=== PATIENT | female | born 1985 | race American Indian/Alaskan Native ===

== ENCOUNTER 2017-07-23 20:40 | Emergency (ER) | payer SELFPAY ==
[2017-07-23 21:13] LABS: Basophils % (Auto) 0.4 % (0.0-1.8); Eosinophils # (Auto) 0.1 K/mm3 (0.0-0.4); Eosinophils % (Auto) 1.9 % (0.0-4.3); Hematocrit 44.8 % (30.3-42.9); Hemoglobin 14.8 gm/dl (10.1-14.3); Lymphocytes # (Auto) 1.9 K/mm3 (1.2-5.4); Lymphocytes % (Auto) 25.7 % (13.4-35.0); Mean Corpuscular HGB Conc 33 % (30-34); Mean Corpuscular Hemoglobin 32 pg (28-32); Mean Corpuscular Volume 96 fl (79-97); Monocytes # (Auto) 0.5 K/mm3 (0.0-0.8); Monocytes % (Auto) 6.3 % (0.0-7.3); Platelet Count 220 K/mm3 (140-440); Red Blood Count 4.69 M/mm3 (3.65-5.03); Red Cell Distribution Width 13.3 % (13.2-15.2)
[2017-07-23 21:34] LABS: Alanine Aminotransferase 10 units/L (7-56); Albumin 4.6 g/dL (3.9-5); BUN/Creatinine Ratio 22; Blood Urea Nitrogen 11 mg/dL (7-17); Calcium 9.1 mg/dL (8.4-10.2); Hemolysis Index 11; Lipase 24 units/L (13-60)
[2017-07-23 23:50] LABS: Bilirubin,Urine NEG (Negative); Blood,Urine NEG (Negative); Color,Urine Yellow (Yellow); Mucus,Urine 1+ /HPF; Protein,Urine <15 mg/dL mg/dL (Negative)
[2017-07-24] MEDS ORDERED: ALUM-MAG HYDROX-SIMETH 200-200-20MG/5ML PO ONE (01:54)
--- NOTE | 2017-07-24 01:58 | Emergency Department Report ---
ED Abdominal Pain HPI - General Chief Complaint: Abdominal Pain Stated Complaint: ABD PAIN LWR RADIATING TO BACK/CHEST Time Seen by Provider: 07/24/17 01:30 Source: patient Mode of arrival: Ambulatory Limitations: No Limitations - History of Present Illness Initial Comments: Patient is 32 years old female history of hypothyroidism, patient presented to the ER complaining of epigastric abdominal pain that does not radiate. Described her pain as burning and fullness sometimes. Patient denied any nausea or vomiting or diarrhea. Patient stated that she is out of her thyroid medicine for the last 3 weeks. No fever cough or congestion. MD Complaint: abdominal pain -: week(s) Location: epigastric Radiation: none Migration to: no migration Severity: moderate Severity scale (0 -10): 5 Quality: fullness, burning Consistency: intermittent Worsens With: nothing Associated Symptoms: denies other symptoms - Related Data Allergies Allergy/AdvReac Type Severity Reaction Status Date / Time tramadol Allergy Itching Verified 07/23/17 20:47 ED Review of Systems ROS: Stated complaint: ABD PAIN LWR RADIATING TO BACK/CHEST Other details as noted in HPI Comment: All other systems reviewed and negative Constitutional: denies: chills Cardiovascular: denies: chest pain, palpitations Gastrointestinal: abdominal pain. denies: nausea, vomiting, diarrhea Neurological: denies: headache, weakness, numbness ED Past Medical Hx - Past Medical History Previous Medical History?: Yes Additional medical history: FLUID IN FALLOPIAN/ POLYPS THYROID - Surgical History Hx Cholecystectomy: Yes Additional Surgical History: POLYP REMOVAL / TUBAL LIGATION - Social History Smoking Status: Current Some Day Smoker Substance Use Type: None ED Physical Exam - General Limitations: No Limitations General appearance: alert, in no apparent distress - Head Head exam: Present: atraumatic, normocephalic - Eye Eye exam: Present: normal appearance, PERRL - ENT ENT exam: Present: normal exam, normal orophraynx, mucous membranes moist - Neck Neck exam: Present: normal inspection, full ROM. Absent: tenderness, meningismus - Respiratory Respiratory exam: Present: normal lung sounds bilaterally. Absent: respiratory distress, wheezes, rales, rhonchi, stridor, chest wall tenderness, accessory muscle use, decreased breath sounds, prolonged expiratory - Cardiovascular Cardiovascular Exam: Present: regular rate, normal rhythm, normal heart sounds - GI/Abdominal GI/Abdominal exam: Present: soft, normal bowel sounds. Absent: distended, tenderness, guarding, rebound, rigid, organomegaly, mass, bruit, pulsatile mass , hernia - Extremities Exam Extremities exam: Present: normal inspection, full ROM, normal capillary refill - Back Exam Back exam: Present: normal inspection, full ROM. Absent: CVA tenderness (L) - Neurological Exam Neurological exam: Present: alert, oriented X3, CN II-XII intact, normal gait - Skin Skin exam: Present: warm, intact, normal color ED Course Vital Signs 07/23/17 07/24/17 20:47 02:20 Temperature 98.8 F 98.9 F Pulse Rate 83 86 Respiratory 18 16 Rate Blood Pressure 131/90 Blood Pressure 139/102 [Left] O2 Sat by Pulse 100 98 Oximetry ED Medical Decision Making - Lab Data Result diagrams: 07/23/17 20:56 07/23/17 20:56 - Radiology Data Radiology results: report reviewed Referring Physician: KAYLA HERNANDEZ Patient Name: SELWYN BURNHAM Date of : 1985 Sex: Female Report Date: 2017-07-24 Report Status: Finalized Findings [facility] [address] [place] [address] XRay Report Signed Patient: SELWYN BURNHAM MR#: [id number] : 1985 Acct:[id number] Age/Sex: 32 / F ADM Date: 07/23/17 Loc: ED Attending Dr: Ordering Physician: KAYLA HERNANDEZ Date of Service: 07/24/17 Procedure(s): XR abdomen 1V ap Accession Number(s): [id number] cc: KAYLA HERNANDEZ Fluoro Time In Minutes: FINAL REPORT EXAM: XR ABDOMEN 1V AP HISTORY: Seen. The bones and soft tissues otherwise well maintained. Pelvis. Free air is not abdominal pain TECHNIQUE: Two views of the abdomen were obtained. FINDINGS: There is a moderate amount retained feces in the colon. The bowel gas pattern otherwise is unremarkable. There are surgical clips in the right upper quadrant from cholecystectomy. There are calcifications along the floor of the pelvis. The bones and soft tissues are well maintained IMPRESSION: Moderate amount retained feces in the colon. No acute process otherwise. Transcribed By: DANILO Dictated By: MANASA MESA MD Electronically Authenticated By: MANASA MESA MD Signed Date/Time: 07/24/17240 DD/ 0 TD/TT: 07/24/17240 Critical care attestation.: If time is entered above; I have spent that time in minutes in the direct care of this critically ill patient, excluding procedure time. ED Disposition Clinical Impression: Abdominal pain, Hypothyroidism, Constipation Disposition: - TO HOME OR SELFCARE Is pt being admited?: No Condition: Stable Instructions: Abdominal Pain (ED), High Fiber Diet (ED), Constipation (ED), Hypothyroidism (ED) Referrals: PRIMARY CARE, [Primary Care Provider] - 3-5 Days
[2017-07-24 02:21] VITALS: BP 139/102
[2017-07-24] MEDS ORDERED: ZOFRAN ODT PO ONE (02:23)
[2017-07-24] MEDS ORDERED: TYLENOL #3 PO ONE (02:23)
--- NOTE | 2017-07-24 02:46 | XRay Report ---
FINAL REPORT EXAM: XR ABDOMEN 1V AP HISTORY: Seen. The bones and soft tissues otherwise well maintained. Pelvis. Free air is not abdominal pain TECHNIQUE: Two views of the abdomen were obtained. FINDINGS: There is a moderate amount retained feces in the colon. The bowel gas pattern otherwise is unremarkable. There are surgical clips in the right upper quadrant from cholecystectomy. There are calcifications along the floor of the pelvis. The bones and soft tissues are well maintained IMPRESSION: Moderate amount retained feces in the colon. No acute process otherwise.
[2017-07-24] MEDS ORDERED: COLACE PO ONE (03:26)
[2017-07-24] MEDS ORDERED: CEPHULAC PO ONE (03:26)
== END 2017-07-24 03:39 | disposition home or self-care (01) ==
LOC: ED 20:40
DX: K59.00 Constipation, unspecified (principal); E03.9 Hypothyroidism, unspecified; F17.200 Nicotine dependence, unspecified, uncomplicated; Z88.6 Allergy status to analgesic agent; Z90.49 Acquired absence of other specified parts of digestive tract; Z98.51 Tubal ligation status
CPT/HCPCS: 36415; 74018; 80053; 81001; 83690; 84439; 84443; 84703; 85025; 99284; Q0162